=== PATIENT | female | born 1950 | race Caucasian/White ===

== ENCOUNTER → 2017-02-06 | Outpatient (CLI) | payer OTHER, MEDICARE | LOC: RAD 12:34 | DX: M25.511 Pain in right shoulder (principal) ==

== ENCOUNTER → 2018-05-20 | Outpatient (CLI) | payer OTHER, MEDICARE ==
[~2018-05-20] VITALS: Ht 162.6 cm; Wt 72.6 kg
[~2018-05-20] MED LIST: ALLEGRA ALLERG180 MG PO; B12INJ IM; FOLIC ACID1 MG PO; IBUPROFEN 200200 M1 PO; METOPROLOL SUCC50 MG PO; MUCINEX600 MG PO; PROTONIX40 M2 PO; VITAMIN B COMP1 EAC7 PO; VITAMIN B-1100 M1 PO
--- NOTE | ~2018-05-20 | HPC ---
[facility] [address] [place] [address] PAIN MANAGEMENT CONSULTATION Name: JLUIS ADAME Room #: REG Margareth Gonzalez.#: [id number] Admission: 05/20/18 Attend Phys: Sly Hill DO Discharge: Date of : 48 Report #: [id number] THIS REPORT FOR: //name// CC: Doug Hill DATE OF SERVICE: 05/20/2018 CHIEF COMPLAINT: Low back pain, bilateral lower extremity pain with paresthesias. HISTORY OF PRESENT ILLNESS: As you know, the patient is a 67-year-old female who reports longstanding history of low back pain, bilateral lower extremity pain that presented late in 2017 and progressively worsened throughout the 2018 timeframe. It has now reached [facility] with a pain anywhere from 4-5/10. The patient initially trialed conservative medical treatment through her PCP. Due to lack of improvement, the patient was sent for MRI of the lumbar spine MRI showed severe spinal stenosis, near critical in the lumbar spine. She was sent to our clinic to discuss the treatment options available for lumbar radiculopathy secondary to severe findings at the L3-L4 and L4-L5 level. The patient indicates today pain is continuous, describes the pain as cramping, aching, pulling, numbness and tingling. Places current pain score 4/10, daily average at 5/10, worst pain has been 7/10. The patient indicates pain is exacerbated with sitting for any length of time, standing for any length of time, improves with repositioning. She has been referred to our service to discuss treatment options for lumbar radicular symptoms secondary to severe near critical spinal stenosis of lumbar spine. PAST MEDICAL HISTORY: 1. Diabetes mellitus type 2. 2. Degenerative joint disease. 3. Osteoarthritis. 4. Gastroesophageal reflux disease. 5. Seasonal allergies. PAST SURGICAL HISTORY: 1. Knee arthroscopy. 2. Iridotomy. 3. Rhinoplasty. SOCIAL HISTORY: The patient denies tobacco, alcohol, IV or illicit drug use. She is retired from [employer] She is not working, not receiving workmen's compensation, nor is she trying to obtain disability benefits. Unaccompanied at today's visit. [facility] [address] [place] [address] PAIN MANAGEMENT CONSULTATION Name: JLUIS ADAME ANKIT Room #: REG [facility] M..#: [id number] Admission: 05/20/18 Attend Phys: Sly Hill DO Discharge: Date of : 48 Report #: [id number] REVIEW OF SYSTEMS: Positive for headaches, wearing corrective eyewear, cataracts, hearing loss with tinnitus, chronic sinus problems with rhinitis, slight arrhythmia, frequent urination, incontinence and dribbling to urine, lightheadedness, dizziness, numbness and tingling sensations lower extremities bilaterally, non-insulin dependent diabetes, bleeding and bruising tendencies. All other review of systems negative per 12-point review of systems other than those listed in history of present illness. Pain impact score , indicating mild interference of daily activities secondary to pain. ALLERGIES: PENICILLIN, SULFA, CEFDINIR. CURRENT MEDICATIONS: Metoprolol 50 mg per day, pantoprazole 40 mg per day, ibuprofen 200 mg 3 times a day, guaifenesin 600 mg every 12 hours, fexofenadine 180 mg per day, multivitamin 1 tab per day, folic acid 1 mg once a day, thiamine 100 mg once a day, vitamin B12 of 1000 mcg intramuscular. IMAGING: MRI lumbar spine obtained on 05/02/2018 shows L1-L2 with mild changes L2-L3 and mild changes, L3-L4 marked bilateral facet arthropathy, ligamentum flavum hypertrophy resulting in contour deformity, mass effect upon the posterior thecal sac. There is anterolisthesis of L3 relative to L4, approximately 4 mm. Findings result in moderate narrowing of the anterior inferior left neural foramen. There is right foraminal disk bulge resulting in mild narrowing of the inferior right neural foramen, marked central canal stenosis of thecal sac measuring 4 mm. L4-L5 moderate to marked bilateral facet arthropathy, ligamentum flavum hypertrophy. 4 mm anterolisthesis of L4 relative to L5. There is neural foraminal stenosis noted bilaterally. There is marked central canal stenosis measuring 4 mm. L5-S1, mild bilateral facet arthropathy. No disk herniation, central canal neural foraminal stenosis. PQRS: The patient has osteoarthritis of the low back. No rheumatoid arthritis. She is placing pain intensity of 4/10. She is not a fall risk, has not had a fall in the last 3 months. She is not on blood thinners. She is not treated for hypertension. She is not on chronic opioids. Risk assessment for opioids low. Functional assessment, pain impact tool 19/70, mild interference of daily activities secondary to pain. PHYSICAL EXAMINATION: VITAL SIGNS: Blood pressure 130/80, pulse 65, respiratory rate 15 and unlabored. The patient is 96% on room air. Height 5 feet 4 inches tall, weight 160 pounds, BMI calculated 27.5. GENERAL: Well-developed, well-nourished, well-hydrated 67-year-old female. She appears stated age. She is placing current pain score at 4-5/10. HEENT: Normocephalic, atraumatic. Pupils equal, round, reactive to light. [address] [place] [address] PAIN MANAGEMENT CONSULTATION Name: JLUIS ADAME Room #: REG [facility]..#: [id number] Admission: 05/20/18 Attend Phys: Sly Hill DO Discharge: Date of : 48 Report #: [id number] Extraocular muscles are intact. Sclerae nonicteric without injection. NEUROLOGIC: Cranial nerves 2 through 12 grossly intact. Speech is fluent. The patient deemed a fair historian. LUNGS: Clear, no wheeze, rhonchi or rales. CARDIOVASCULAR: Regular. No appreciable gallop, no rub. ABDOMEN: Soft, nontender, nondistended, normoactive bowel sounds. EXTREMITIES: Show no clubbing, no cyanosis, no edema. MUSCULOSKELETAL: Lower extremity strength appears equal and symmetrical 5/5. She is intact to light touch from L1 through S2 dermatomes. Seated straight leg raising negative. Supine straight leg raising positive. Kerry test negative. Modified Gaenslen positive for axial low back pain. Ankle clonus negative. Babinski is negative. Lumbar provocation testing is met with increasing pain with extension, rotation and lateral flexion of the lumbar spine. Full flexion of the lumbar spine does not appear to change pain. ASSESSMENT: 1. Symptomatic lumbar radiculopathy. 2. Marked central canal stenosis of the lumbar spine, multiple levels. 3. Displacement of lumbar intervertebral disk with radiculopathy. 4. Lumbosacral spondylosis with radiculopathy. 5. Neural foraminal stenosis. 6. Facet arthropathy of lower lumbar spine. 7. Lumbar degeneration. 8. Chronic intractable pain. PLAN: 1. Based on today's physical exam and the history the patient provides, the description the patient uses in regards to pain as well as the location of symptoms and the findings of her MRI, likely source of the patient's pain is lumbar radiculopathy. We had a long discussion with the patient today about the findings of her MRI, specifically at the L3-L4 and L4-L5 level. She has marked central canal stenosis that is the source of her symptoms, and we discussed the potential treatment options based on these significant findings. The following was discussed with the patient for treatment options. We discussed physical therapy, stretching exercises, core strengthening as a conservative treatment course. We discussed medication management, indicating treatment with neuropathic pain medications and a consistent nonsteroidal anti-inflammatory. We discussed lumbar epidural injections under fluoroscopic guidance for which the patient was referred to our clinic. We discussed spinal cord stimulator therapy as a way to provide temporary improvement in symptoms. We ultimately then discussed surgical options given the severity of the spinal stenosis at the L3-L4 and L4-L5 level. After reviewing the risks and benefits of all the proposed treatment options, the patient requested a lumbar epidural injection as initial treatment. [address] [address] PAIN MANAGEMENT CONSULTATION Name: SHILAANSLEYNAOBRJLUIS Maloney ANKIT Room #: REG CLMargareth Baez#: [id number] Admission: 05/20/18 Attend Phys: Sly Hill DO Discharge: Date of : 48 Report #: [id number] 2. The patient was advised risks and benefits of a lumbar epidural injection. These risks include but are not necessarily limited to bleeding, bruising, infection, worsening pain, no relief of pain, also risk of temporary or permanent muscle weakness, temporary or permanent nerve damage, possible paralysis and . The patient states understood and wished to proceed. 3. No medication changes made at today's visit. The patient will continue current medical therapy as previously prescribed. 4. We will see the patient back in followup visit in approximately 2 weeks. At that time, review the efficacy of today's epidural injection and determine if next in the series of epidural injections might be necessary. 5. I have discussed with the patient the possibility of a surgical consultation. We will defer to Dr. Nolan for the referral to Neurosurgery. Given the severity of the stenosis at the L3-L4 and L4-L5 level, she will likely need decompression in the very near future. Again, we will defer to Dr. Nolan for the referral of this patient for neurosurgery consultation. 6. We wish to thank Dr. Nolan for the referral of the patient to our clinic. We will keep you apprised of her response to treatment as we attempt conservative treatment options to address lumbar radicular symptoms. Again, we wish to thank you for the opportunity to see the patient in consultation. PROCEDURE NOTE DESCRIPTION OF PROCEDURE: L5-S1 interlaminar epidural steroid injection under fluoroscopic guidance. This is the first procedure of the first series that the patient is undergoing. After obtaining written consent, the patient was taken back to the fluoroscopy suite, placed in a prone position with pillow under the abdomen to decrease lumbar lordosis. The skin overlying the lumbosacral area was then prepped and draped in aseptic fashion. The L5-S1? vertebral interspace was then identified by AP fluoroscopy. The skin and subcutaneous tissue overlying the target site of injection was anesthetized with 3 mL 1% lidocaine. A 20-gauge 3-1/2 inch Tuohy needle was then advanced under fluoroscopic guidance towards the epidural space using a midline approach. The epidural space was identified using loss of resistance to air technique. After negative aspiration for heme or cerebrospinal fluid, a total of 0.5 mL of Omnipaque was injected. A lumbar epidurogram was confirmed using both AP and lateral fluoroscopy. After negative aspiration for heme or cerebrospinal fluid, 5 mL of a solution containing 2 mL 40 mg per mL, 80 mg total triamcinolone, 3 mL lidocaine 1% was injected in increments. Contrast spread was noted postepidural space. The [address] [address] PAIN MANAGEMENT CONSULTATION Name: JLUIS ADAME ANKIT Room #: REG Margareth Baez#: [id number] Admission: 05/20/18 Attend Phys: Sly Hill DO Discharge: Date of : 48 Report #: [id number] needle was then retracted approximately half way and needle tract flushed with 1 mL of 1% lidocaine. Needle was then removed. There were no apparent sensory or motor deficits in the lower extremity following the procedure. A sterile bandage was placed over the injection site. The heart rate, pulse, oximetry and blood pressure were continuously monitored after the procedure. There were no apparent complications. The patient tolerated the procedure well and was carefully escorted to the recovery room in stable condition. There were no apparent complications. After meeting discharge criteria, the patient was then discharged home. <ELECTRONICALLY SIGNED> By: Sly Hill DO 05/27/18 [id number] Sly Hill DO /nt
[2018-05-20 11:14] VITALS: BP 130/80
== END | disposition home or self-care (01) ==
LOC: PAIN 09:33
DX: M51.16 Intervertebral disc disorders with radiculopathy, lumbar region (principal); M48.061 Spinal stenosis, lumbar region without neurogenic claudication; M47.27 Other spondylosis with radiculopathy, lumbosacral region; M46.96 Unspecified inflammatory spondylopathy, lumbar region; G89.29 Other chronic pain; E11.9 Type 2 diabetes mellitus without complications; M19.90 Unspecified osteoarthritis, unspecified site; K21.9 Gastro-esophageal reflux disease without esophagitis; Z88.0 Allergy status to penicillin; Z88.2 Allergy status to sulfonamides; Z88.8 Allergy status to other drugs, medicaments and biological substances; Z79.899 Other long term (current) drug therapy; Z98.890 Other specified postprocedural states

== ENCOUNTER → 2018-06-03 | Outpatient (CLI) | payer OTHER, MEDICARE ==
[~2018-06-03] VITALS: Ht 162.6 cm; Wt 71.8 kg
[~2018-06-03] MED LIST changes: +CRANBERRY 12,61 EACH PO; +MEGARED OMEGA-1 EAC1 PO
--- NOTE | ~2018-06-03 | HPC ---
[facility] [place] [address] PAIN MANAGEMENT CONSULTATION Name: JLUIS ADAME ANKIT Room #: REG EDWARD Baez#: [id number] Admission: 06/03/18 Attend Phys: Sly Hill DO Discharge: Date of : 48 Report #: [id number] THIS REPORT FOR: //name// CC: Doug Hill DATE OF SERVICE: 06/03/2018 REFERRING PHYSICIAN: Doug Nolan M.D. CHIEF COMPLAINT: Low back pain and bilateral extremity pain with paresthesias. HISTORY OF PRESENT ILLNESS: As you know, the patient is a 68-year-old female who returns today in followup visit reporting pain score around 3/10. As you are aware, the patient has had a longstanding history of low back pain and bilateral lower extremity pain, which presented late 2016, progressively worsened throughout the 2018 timeframe reaching a crescendo of discomfort at around 4-5/10. She was referred to our clinic for evaluation on 05/20/2018, underwent an epidural injection under fluoroscopic guidance at that visit to address lumbar radicular symptoms. She reports 90% improvement in overall pain despite the elevated pain level of 3/10 today. She remains with some numbness and tingling sensation, exacerbated mainly with standing, improves with repositioning, sitting down or lying down and the previous epidural injection. She returns today in followup visit to discuss treatment options if her pain does return to an intolerable level. ALLERGIES: PENICILLIN, SULFA and . CURRENT MEDICATIONS: Metoprolol 50 mg once a day, pantoprazole 40 mg once a day, ibuprofen 200 mg 3 times a day, guaifenesin 600 mg twice a day, fexofenadine 180 mg once a day, multivitamin 1 tab per day, folic acid 1 mg once a day, thiamine 100 mg once a day and vitamin B12 1000 mcg intramuscular as necessary. IMAGING DATA: No new imaging available. PQRS: The patient has known osteoarthritic change of the low back. No rheumatoid arthritis. She is placing pain score today 3/10, not a fall risk, has not had a fall in the last 3 months. She is not on blood thinners. She is not treated for hypertension. She is not on any chronic opioids. She is placing pain impact score at 4/70, mild interference of daily activities secondary to pain. PHYSICAL EXAMINATION: VITAL SIGNS: Blood pressure 126/63, pulse 65 and respiratory rate [address] [address] PAIN MANAGEMENT CONSULTATION Name: JLUIS ADAME Room #: REG CL M.R.#: [id number] Admission: 06/03/18 Attend Phys: Sly Hill DO Discharge: Date of : 48 Report #: [id number] unlabored. The patient is 99% on room air. Height 5 feet 4 inches tall, weight 158.2 pounds and BMI calculated 27.1. GENERAL: Well-developed, well-nourished and well-hydrated 68-year-old female appearing her stated age, placing current pain score 3/10. HEENT: Normocephalic and atraumatic. Pupils equal, round and reactive to light. EXTREMITIES: Show no clubbing, no cyanosis and no edema. MUSCULOSKELETAL: Lower extremity strength appears equal and symmetrical 5/5, intact to light touch from L1 through S2 dermatomes. Seated straight leg raising negative. Supine straight leg raising remains mildly positive. Kerry's test negative. Modified Gaenslen's positive for axial low back pain. ASSESSMENT: 1. Symptomatic lumbar radiculopathy. 2. 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 3. Displacement of the lumbar intervertebral disk with radiculopathy. 4. Lumbosacral spondylosis with radiculopathy. 5. Neural foraminal stenosis of the lumbar spine. 6. Facet arthropathy of the lumbar spine. 7. Lumbar degeneration. 8. Chronic intractable pain. PLAN: 1. The patient returns today in followup visit having noted 90% improvement in overall pain with the epidural injection. She is extremely pleased with response to this epidural injection despite the elevated pain level of 3/10 today. At this point, the patient wishes to delay the next in the series of epidural injections until which time her pain does return to an intolerable level. She is pleased with response to the injection and is hopeful to see prolonged improvement. 2. We have made no changes in the patient's medication management. We will be available to see her back to make any adjustments in medication therapy as necessary, suggestions being provided directly to Dr. Nolan. We will also discuss the possibility of undergoing epidural injection if her pain does return. 3. We will be returning the patient's care to Dr. Nolan for further evaluation, will be available to see her back if her pain does return, she may contact our clinic at her earliest convenience to undergo next in the series of epidural injections or discussed medication changes. By: [id number] Sly Hill DO /nt
[2018-06-03 11:13] VITALS: BP 126/63
== END ==
LOC: PAIN 08:44
DX: M54.5 Low back pain (principal); M79.605 Pain in left leg; M79.604 Pain in right leg

== ENCOUNTER → 2018-09-02 | Outpatient (CLI) | payer OTHER, MEDICARE ==
[~2018-09-02] VITALS: Ht 162.6 cm; Wt 75.2 kg
[~2018-09-02] MED LIST changes: +ALEVE220 MG PO; +ONE-A-DAY WOMENS PO
--- NOTE | ~2018-09-02 | HPC ---
[facility] [place] [address] PAIN MANAGEMENT CONSULTATION Name: JLUIS ADAME Room #: REG Margareth MJes.#: [id number] Admission: 09/02/18 ������������������ Attend Phys: Sly Hill DO Discharge: ������������������ Date of : 48 Report #: [id number] THIS REPORT FOR: //name// CC: Doug Hill DATE OF SERVICE: 09/02/2018 CHIEF COMPLAINT: Low back pain, bilateral lower extremity pain and paresthesias. HISTORY OF PRESENT ILLNESS: As you know, the patient is a 68-year-old female who returns today in followup visit reporting pain score of up to 7-8/10. She underwent an epidural injection at our last visit, which provided 80% improvement in overall pain until just recently where she had a slow and progressive return of symptoms. She denies new injury, trauma or any changes in medical history since our last visit. She returns today requesting to undergo next in the series of lumbar epidural injections in hopes of improving pain. She returns today in followup visit to undergo next in the series of lumbar epidural injections to build on success of previous intervention. ALLERGIES: PENICILLIN and SULFA. CURRENT MEDICATIONS: Metoprolol, pantoprazole, ibuprofen, guaifenesin, fexofenadine, multivitamin, folic acid, thiamine and vitamin B12. SOCIAL HISTORY: The patient denies tobacco, alcohol, IV or illicit drug use. She is unaccompanied today. IMAGING DATA: No new imaging available. PQRS: The patient has known arthritic changes of the lumbar spine. No rheumatoid arthritis. She is placing pain intensity at somewhere between 7-8/10. She is not a fall risk, has not had a fall in the last 3 months. She is not on blood thinner. She is not treated for hypertension. She is not on chronic opioids. She is placing pain impact score at 39/70, indicating moderate interference of daily activities secondary to pain. PHYSICAL EXAMINATION: VITAL SIGNS: Blood pressure 136/67, pulse 81 and respiratory rate 16 and unlabored. The patient is 98% on room air. Height 5 feet 4 inches tall, weight 165.8 pounds and BMI calculated 28.4. GENERAL: Well-developed, well-nourished, well-hydrated 68-year-old female appearing her stated age. She is placing pain score 7-8/10. HEENT: Normocephalic and atraumatic. Pupils equal, round and reactive to [facility] [address] [place] [address] PAIN MANAGEMENT CONSULTATION Name: JLUIS ADAME [facility] [id number] Admission: 09/02/18 ������������������ Attend Phys: Sly Hill DO Discharge: ������������������ Date of : 46 Report #: [id number] light. EXTREMITIES: Show no clubbing, no cyanosis and no edema. MUSCULOSKELETAL: Lower extremity strength equal and symmetrical 5/5, intact to light touch from L1 through S2 dermatomes. Seated straight leg raising negative. Supine straight leg raising mildly positive right. Kerry's test negative. Modified Gaenslen's positive for axial low back pain. ASSESSMENT: 1. Symptomatic lumbar radiculopathy. 2. Marked central canal stenosis of lumbar spine. 3. Displacement of lumbar intervertebral disk with radiculopathy. 4. Lumbosacral spondylosis with radiculopathy. 5. Severe neural foraminal stenosis of the lumbar spine. 6. Facet arthropathy of the lumbar spine. 7. Lumbar degeneration. 8. Chronic intractable pain. PLAN: 1. The patient returns today in followup visit requesting to undergo next in the series of epidural injections under fluoroscopic guidance. She reported 80% improvement in overall pain with the injection provided in May 2018. She returns to undergo the second in the series of epidural injections. She denies any new injury or trauma that may have led to symptom recurrence. She has been advised risks and benefits of the procedure and states understood and wished to proceed. 2. No medication changes made at today's visit. The patient will continue current medical therapy as prior prescribed. 3. We will see the patient back in followup visit on an as needed basis for possible next in the series of lumbar epidural injections under fluoroscopic guidance. PROCEDURE NOTE DESCRIPTION OF PROCEDURE: L5-S1 interlaminar epidural steroid injection under fluoroscopic guidance. This is the second procedure of the first series that the patient is undergoing. After obtaining written consent, the patient was taken back to the fluoroscopy suite, placed in a prone position with pillow under the abdomen to decrease lumbar lordosis. The skin overlying the lumbosacral area was then prepped and draped in aseptic fashion. The L5-S1 vertebral interspace was then identified by AP fluoroscopy. The skin and subcutaneous tissue overlying the target site of injection was anesthetized with 3 mL 1% lidocaine. A 20-gauge 3-1/2 inch Tuohy needle was then advanced under fluoroscopic guidance [address] [address] PAIN MANAGEMENT CONSULTATION Name: JLUIS ADAME [id number] Admission: 09/02/18 ������������������ Attend Phys: Sly Hill DO Discharge: ������������������ Date of : 46 Report #: [id number] towards the epidural space using a midline approach. The epidural space was identified using loss of resistance to air technique. After negative aspiration for heme or cerebrospinal fluid, a total of 1 mL of Omnipaque was injected. A lumbar epidurogram was confirmed using both AP and lateral fluoroscopy. After negative aspiration for heme or cerebrospinal fluid, 5 mL of a solution containing 2 mL 40 mg per mL, 80 mg total triamcinolone, 3 mL lidocaine 1% was injected in increments. Contrast spread was noted posterior epidural space. The needle was then retracted approximately half way and needle tract flushed with 1 mL of 1% lidocaine. Needle was then removed. There were no apparent sensory or motor deficits in the lower extremity following the procedure. A sterile bandage was placed over the injection site. The heart rate, pulse, oximetry and blood pressure were continuously monitored after the procedure. There were no apparent complications. The patient tolerated the procedure well and was carefully escorted to the recovery room in stable condition. There were no apparent complications. After meeting discharge criteria, the patient was then discharged home. ��������������������������������������������� ���������������������������������������� By: ��������������������������������������������� [id number] 25 Sly Hill DO /nt
[2018-09-02 09:29] VITALS: BP 136/67
--- NOTE | 2018-09-02 09:48 | NUR ---
Pain Clinic Assessment: 1. History of Osteoarthritis: N History of Rheumatoid Arthritis: N 2. Height: 5 ft. 4 in. 162.6 cm. Weight: 165.8 lb. oz. 75.206 kg. Patient's BMI: 28.4 3. Vital Signs: BP: 136/67 Pulse: 81 Resp: 16 Temp: 02 Sat: 98 ECG Mon: 4. Pain Intensity: 7-8 STANDING 5. Fall Risk: Dizziness: N Needs help standing or walking: N Fallen in the last 3 months: N Fall risk comments: 6. Patient on Blood Thinner: None 7. History of Hypertension: N 8. Opioid Therapy greater than 6 weeks: N Opiate Contract Signed: 9. Risk Assessment Tool Provided: 10. Functional Assessment Tool: 11. Recreational Drug Use: Never Drug Type: Tobacco Use: Never Smoker Tobacco Type: Amount or Packs/day: How Many Years: Alcohol Use: No Frequency: Quant:
== END | disposition home or self-care (01) ==
LOC: PAIN 06:43
DX: M51.16 Intervertebral disc disorders with radiculopathy, lumbar region (principal); M47.27 Other spondylosis with radiculopathy, lumbosacral region; M48.061 Spinal stenosis, lumbar region without neurogenic claudication; M47.26 Other spondylosis with radiculopathy, lumbar region; G89.29 Other chronic pain; Z88.0 Allergy status to penicillin; Z88.2 Allergy status to sulfonamides; Z79.899 Other long term (current) drug therapy

== ENCOUNTER → 2018-12-09 | Outpatient (CLI) | payer OTHER, MEDICARE ==
[~2018-12-09] VITALS: Ht 162.6 cm; Wt 76.3 kg
[2018-12-09 10:15] VITALS: BP 128/69
--- NOTE | 2018-12-09 10:27 | NUR ---
Pain Clinic Assessment: 1. History of Osteoarthritis: Not Applicable History of Rheumatoid Arthritis: Not Applicable 2. Height: 5 ft. 4 in. 162.6 cm. Weight: 168.2 lb. oz. 76.295 kg. Patient's BMI: 28.9 3. Vital Signs: BP: 128/69 Pulse: 75 Resp: 16 Temp: 02 Sat: 100 ECG Mon: 4. Pain Intensity: 7 STANDING 5. Fall Risk: Dizziness: N Needs help standing or walking: N Fallen in the last 3 months: N Fall risk comments: 6. Patient on Blood Thinner: None 7. History of Hypertension: N 8. Opioid Therapy greater than 6 weeks: N Opiate Contract Signed: 9. Risk Assessment Tool Provided: 10. Functional Assessment Tool: 11. Recreational Drug Use: Never Drug Type: Tobacco Use: Never Smoker Tobacco Type: Amount or Packs/day: How Many Years: Alcohol Use: No Frequency: Quant:
--- NOTE | 2018-12-17 12:16 | HPC ---
[facility] [address] [place] [address] PAIN MANAGEMENT CONSULTATION Name: JLUIS ADAME Room #: REG EDWARD Carlos.#: [id number] Admission: 12/09/18 ������������������ Attend Phys: Sly Hill DO Discharge: ������������������ Date of : 46 Report #: [id number] THIS REPORT FOR: //name// CC: Doug Hill DATE OF SERVICE: 12/09/2018 REFERRING PHYSICIAN: Doug Nolan M.D. CHIEF COMPLAINT: Low back pain and bilateral lower extremity pain with paresthesias. HISTORY OF PRESENT ILLNESS: As you know, the patient is a 68-year-old female who returns today in followup visit with pain level rated at 7/10 while standing or ambulating. She indicates pain is radiating tingling, numbness, pressure and tightness when describing symptoms. Pain is improved with repositioning, sitting, lying down and the previous epidural injection, which gave 75% improvement in overall pain lasting for 2-1/2 months. She returns today in followup visit to undergo next in the series of lumbar epidural injections in hopes of improving pain further. She denies new injury or trauma that may have led to symptom recurrence. ALLERGIES: PENICILLIN and SULFA. CURRENT MEDICATIONS: Metoprolol, pantoprazole, ibuprofen, guaifenesin, fexofenadine, multivitamin, folic acid, thiamine and vitamin B12. SOCIAL HISTORY: The patient denies tobacco, alcohol or IV or illicit drug use. She is unaccompanied today. IMAGING DATA: No new imaging available. PQRS: The patient has known arthritic change of the lumbar spine, mildly in the bilateral hips. No rheumatoid arthritis. She is placing pain intensity today, 7/10. She is not a fall risk, has not had a fall in the last 3 months. She is not on blood thinners. She is treated for hypertension. She is not on chronic opioids. She places pain impact at 35/70, moderate interference of daily activities secondary to pain. PHYSICAL EXAMINATION: VITAL SIGNS: Blood pressure 128/69, pulse 75 and respiratory rate 16 and unlabored. The patient is 100% on room air. Height 5 feet 4 inches tall, weight 168.2 pounds and BMI calculated 28.9. GENERAL: Well-developed, well-nourished, well-hydrated 68-year-old female [address] [address] PAIN MANAGEMENT CONSULTATION Name: JLUIS ADAME ANKIT Room #: REG EDWARD Carlos.#: [id number] Admission: 12/09/18 ������������������ Attend Phys: Sly Hill DO Discharge: ������������������ Date of : 46 Report #: [id number] appearing stated age, pain is rated today 7/10. HEENT: Normocephalic and atraumatic. Pupils equal, round and reactive to light. Speech remains fluent. EXTREMITIES: Show no clubbing, no cyanosis and no edema. MUSCULOSKELETAL: Lower extremity strength equal and symmetrical 5/5. Muscle bulk and tone equal and symmetrical when comparing left lower extremity to right. Seated straight leg raising negative. Supine straight leg raising positive right. Kerry's test negative. Gait mildly antalgic favoring right lower extremity. ASSESSMENT: 1. Symptomatic lumbar radiculopathy. 2. 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 3. Displacement of lumbar intervertebral disk with radiculopathy. 4. Lumbosacral spondylosis with radiculopathy. 5. Severe neural foraminal stenosis of the lumbar spine. 6. Facet arthropathy of the lumbar spine. 7. Lumbar degeneration. 8. Chronic intractable pain. PLAN: 1. The patient returns today in followup visit indicating 75% improvement in overall pain with the previous epidural injection lasting for nearly 2-1/2 months. She is pleased with response to the initial injection, returning today in hopes of undergoing the next in the series. I have advised the patient of the risks and benefits of the procedure, she states she understood and wished to proceed. 2. No medication changes made at today's visit. The patient will continue current medical therapy as previously prescribed. 3. We will see the patient back in followup visit to undergo next in the series of lumbar epidural injections. PROCEDURE NOTE DESCRIPTION OF PROCEDURE: L5-S1 interlaminar epidural steroid injection under fluoroscopic guidance. This is the third procedure of the first series that the patient is undergoing. After obtaining written consent, the patient was taken back to the fluoroscopy suite, placed in a prone position with pillow under the abdomen to decrease lumbar lordosis. The skin overlying the lumbosacral area was then prepped and draped in aseptic fashion. The L5-S1 vertebral interspace was then identified by AP fluoroscopy. The skin and subcutaneous tissue overlying the target site of injection was anesthetized with 3 mL 1% lidocaine. [address] [address] PAIN MANAGEMENT CONSULTATION Name: JLUIS ADAME Room #: REG EDWARD Baez#: [id number] Admission: 12/09/18 ������������������ Attend Phys: Sly Hill DO Discharge: ������������������ Date of : 46 Report #: [id number] A 20-gauge 3-1/2 inch Tuohy needle was then advanced under fluoroscopic guidance towards the epidural space using a right paramedian approach. The epidural space was identified using loss of resistance to air technique. After negative aspiration for heme or cerebrospinal fluid, a total of 1 mL of Omnipaque was injected. A lumbar epidurogram was confirmed using both AP and lateral fluoroscopy. After negative aspiration for heme or cerebrospinal fluid, 5 mL of a solution containing 2 mL 40 mg per mL, 80 mg total triamcinolone, 3 mL lidocaine 1% was injected in increments. Contrast spread was noted posterior epidural space. The needle was then retracted approximately half way and needle tract flushed with 1 mL of 1% lidocaine. Needle was then removed. There were no apparent sensory or motor deficits in the lower extremity following the procedure. A sterile bandage was placed over the injection site. The heart rate, pulse, oximetry and blood pressure were continuously monitored after the procedure. There were no apparent complications. The patient tolerated the procedure well and was carefully escorted to the recovery room in stable condition. There were no apparent complications. After meeting discharge criteria, the patient was then discharged home. ��������������������������������������������� <ELECTRONICALLY SIGNED> ���������������������������������������� By: Sly Hill DO ��������������������������������������������� 12/17/18 1216 0717 0837 Sly Hill DO /nt
== END | disposition home or self-care (01) ==
LOC: PAIN 06:38
DX: M51.16 Intervertebral disc disorders with radiculopathy, lumbar region (principal); M48.061 Spinal stenosis, lumbar region without neurogenic claudication; M47.27 Other spondylosis with radiculopathy, lumbosacral region; M99.73 Connective tissue and disc stenosis of intervertebral foramina of lumbar region; M12.88 Other specific arthropathies, not elsewhere classified, other specified site; G89.29 Other chronic pain; Z88.2 Allergy status to sulfonamides; Z88.8 Allergy status to other drugs, medicaments and biological substances; Z91.040 Latex allergy status; Z79.899 Other long term (current) drug therapy

== ENCOUNTER → 2020-11-11 | Outpatient (CLI) | payer OTHER, MEDICARE | LOC: SJCVC 11:47 | PROVIDERS: ATTEND Internal Medicine Cardiovascular Disease | DX: R00.2 Palpitations (principal); E78.00 Pure hypercholesterolemia, unspecified; I10 Essential (primary) hypertension; K21.9 Gastro-esophageal reflux disease without esophagitis; J32.0 Chronic maxillary sinusitis; E11.40 Type 2 diabetes mellitus with diabetic neuropathy, unspecified; R42 Dizziness and giddiness; Z79.899 Other long term (current) drug therapy; Z88.1 Allergy status to other antibiotic agents; Z82.49 Family history of ischemic heart disease and other diseases of the circulatory system ==

== ENCOUNTER → 2020-11-11 | Outpatient (CLI) | payer OTHER | LOC: CAT 12:21 | PROVIDERS: ATTEND Internal Medicine Cardiovascular Disease | DX: Z13.6 Encounter for screening for cardiovascular disorders (principal); I25.10 Atherosclerotic heart disease of native coronary artery without angina pectoris; E78.00 Pure hypercholesterolemia, unspecified ==

== ENCOUNTER → 2021-01-11 | Outpatient (CLI) | payer OTHER, MEDICARE | LOC: SJCVCIMAG 12-26 07:24 | PROVIDERS: ATTEND Internal Medicine Cardiovascular Disease | DX: I08.2 Rheumatic disorders of both aortic and tricuspid valves (principal); E78.00 Pure hypercholesterolemia, unspecified; I10 Essential (primary) hypertension; E78.5 Hyperlipidemia, unspecified; R06.00 Dyspnea, unspecified ==

== ENCOUNTER 2021-03-13 12:31 | Emergency (ER) | payer OTHER, MEDICARE ==
[~2021-03-13] VITALS: Ht 162.6 cm; Wt 72.6 kg
[2021-03-13 13:15] LABS: ABSOLUTE NEUTROPHILS 4.5 thou/uL (1.4-8.2); BASOPHILS 0.6 % (0.0-2.0); EOSINOPHILS 3.1 % (0.0-3.0); HEMATOCRIT 37.8 % (37.0-47.0); HEMOGLOBIN 12.9 gm/dL (12.0-15.0); LYMPHOCYTES 33.1 % (24.0-44.0); MCH 32.1 pg (26.0-34.0); MCV 94.3 fL (80.0-100.0); MONOCYTES 10.1 % (1.0-8.0); PLATELET COUNT 246 thou/uL (150-400); POLYS 53.1 % (36.0-66.0); RBC 4.01 mil/uL (4.20-5.00); RDW 12.7 % (10.5-14.5); WBC 8.4 thou/uL (4.0-11.0)
[2021-03-13 13:31] LABS: CALCIUM 9.3 mg/dL (8.5-10.1); CREATININE 1.3 mg/dL (0.6-1.0); INR 0.97; POTASSIUM 4.3 mmol/L (3.5-5.1); PROTIME 10.6 Seconds (10.5-12.1)
[2021-03-13 13:43] LABS: ALBUMIN 4.3 g/dL (3.4-5.0); TOTAL BILIRUBIN 0.4 mg/dL (0.2-1.0); TOTAL PROTEIN 7.9 g/dL (6.4-8.2)
[2021-03-13] MEDS ORDERED: TOPROL XL50 MG PO (15:46)
[2021-03-13 16:07] VITALS: BP 171/63
--- NOTE | 2021-03-13 16:22 | EKG ---
[place] [address] [place] [address] ELECTROCARDIOGRAM REPORT Name: JLUIS ADAME ANKIT [id number] Admission: 03/13/21 Attend Phys: Discharge: 03/13/21 Date of : 46 Report #: [id number] [facility] ED Test Date: 2021-03-13 Test Time: 12:41:50 Pat Name: JLUIS ADAME Department: Room: Gender: F Administrative Technician: steve : 1950 Requested By: Shaquille Figueroa Order Number: [id number] MD: Jose Bearden Measurements Intervals [place] Rate: 84 P: 118 AL: 172 QRS: 215 QRSD: 91 T: 145 QT: 341 QTc: 404 Interpretive Statements Right and left arm electrode reversal, interpretation assumes no reversal Sinus rhythm Occasional premature ventricular complexes Compared to ECG 09/21/1999 07:02:17 Ventricular premature complex(es) now present Limb lead reversal is now present, recommend repeat tracing Electronically Signed On 03-13-2021 16:22:43 CDT by Jose Bearden [email or web address] <ELECTRONICALLY SIGNED> By: Jose Bearden MD, [facility] 03/13/21 1622 1241 1241 Jose Bearden MD, [facility] /EPI
== END 2021-03-13 16:17 | disposition home or self-care (01) ==
LOC: ER 12:31
PROVIDERS: Emergency Medicine
DX: R20.0 Anesthesia of skin (principal); R00.2 Palpitations; J32.9 Chronic sinusitis, unspecified; Z79.899 Other long term (current) drug therapy; Z79.1 Long term (current) use of non-steroidal anti-inflammatories (NSAID); Z88.0 Allergy status to penicillin; Z88.2 Allergy status to sulfonamides; Z88.1 Allergy status to other antibiotic agents

== ENCOUNTER → 2021-04-06 | Outpatient (CLI) | payer OTHER, MEDICARE ==
[~2021-04-06] MED LIST changes: +TOPROL XL50 MG PO
== END ==
LOC: SJCVC 11:01
PROVIDERS: ATTEND Internal Medicine Cardiovascular Disease
DX: R93.1 Abnormal findings on diagnostic imaging of heart and coronary circulation (principal); I10 Essential (primary) hypertension; R00.2 Palpitations; E78.00 Pure hypercholesterolemia, unspecified; K21.9 Gastro-esophageal reflux disease without esophagitis; E11.9 Type 2 diabetes mellitus without complications; Z82.49 Family history of ischemic heart disease and other diseases of the circulatory system; Z88.8 Allergy status to other drugs, medicaments and biological substances; Z79.899 Other long term (current) drug therapy